=== PATIENT | male | born 1985 | race Caucasian/White ===

== ENCOUNTER 2023-06-01 14:02 | Emergency (ER) | payer BC ==
[~2023-06-01] VITALS: Ht 172.7 cm; Wt 83.9 kg
[2023-06-01 14:47] VITALS: BP_SYST 111; PULSE 87; RESP 16; TEMP 97.4; O2SAT 98
== END 2023-06-01 16:07 | disposition left against medical advice (07) ==
LOC: SED 14:02
DX: R53.1 Weakness (principal); M79.10 Myalgia, unspecified site; Z53.21 Procedure and treatment not carried out due to patient leaving prior to being seen by health care provider
CPT/HCPCS: 99281